=== PATIENT | female | born 1960 | race Caucasian/White ===

== ENCOUNTER → 2021-09-04 | Outpatient (CLI) | payer OTHER ==
[~2021-09-04] MED LIST: APPLE CIDER VINEGAR; FLUTICASONE; LIPITOR TAB 2020 MG PO; LORATADINE10 MG PO; MELOXICAM15 MG PO; OYSTER SHELL C500 MG PO; PROZAC20 MG PO; VITAMIN D21250 MCG PO
[2021-09-04 11:13] LABS: HEMOGLOBIN 13.6 gm/dl (12.3-15.3); RED BLOOD COUNT 4.35 M/UL (4.00-5.10); WHITE BLOOD COUNT 4.8 K/UL (4.5-11.0)
[2021-09-04 11:32] LABS: BUN/CREATININE RATIO 23 (0-10)
== END ==
LOC: OPSV2 10:00 → EDSTATUS 10:00 → OPSV2 10:27
PROVIDERS: Orthopaedic Surgery
DX: Z01.818 Encounter for other preprocedural examination (principal); M17.11 Unilateral primary osteoarthritis, right knee
CPT/HCPCS: 36415; 80048; 83036; 85027; 85652; 86140; 93005

== ENCOUNTER → 2021-09-17 | Outpatient (CLI) | payer OTHER ==
[2021-09-17 09:30] LABS: BUN/CREATININE RATIO 18 (0-10)
== END ==
LOC: LAB 08:32
PROVIDERS: Orthopaedic Surgery
DX: Z01.812 Encounter for preprocedural laboratory examination (principal)
CPT/HCPCS: 36415; 80048; 86850; 86900; 86901

== ENCOUNTER → 2021-09-18 | Day surgery (SDC) | payer OTHER | END | disposition home or self-care (01) | LOC: OR 04:59 → EDSTATUS 15:00 → OR 15:00 | DX: M17.11 Unilateral primary osteoarthritis, right knee (principal); E78.5 Hyperlipidemia, unspecified; Z88.2 Allergy status to sulfonamides; Z79.899 Other long term (current) drug therapy; Z20.822 Contact with and (suspected) exposure to COVID-19 | CPT/HCPCS: 73560; 97161; 97166; 97530; 97535; C1713; C1776; J0171; J0690; J0735; J1100; J1170; J1885; J2001; J2250; J2270; J2370; J2405; J2704; J2795; J3010; J3370; J7030; J7120 ==